=== PATIENT | female | born 1995 | race Caucasian/White ===

== ENCOUNTER → 2017-08-29 | Outpatient (CLI) | payer OTHER | END | disposition home or self-care (01) | LOC: C.PAPS 14:15 | PROVIDERS: ATTEND Obstetrics & Gynecology | DX: Z12.4 Encounter for screening for malignant neoplasm of cervix (principal) ==

== ENCOUNTER → 2017-09-07 | Outpatient (CLI) | payer OTHER ==
--- NOTE | 2017-09-07 15:46 | MAMMOGRAPHY REPORT ---
ULTRASOUND OF RIGHT BREAST: 09/07/2017 CLINICAL HISTORY: 22-year-old woman presents with a palpable lump under the right areola that she has noticed for at least one year. It does not appear to be changing in size but is painful. No skin e rythema or nipple discharge. No family history of breast cancer. COMPARISON: No prior exams were available for comparison. FINDINGS: Targeted ultrasound was performed in the area of palpable lump pointed out by the patient, in the 8:00 periareolar/retroareolar right breast. On palpation, there is a firm 1 cm mass. On ultr asound, there is a multilobulated heterogeneous hypoechoic solid mass. Given the multiple lobulation s it is difficult to obtain accurate measurements, however it measures approximately 3.0 x 1.1 x 2.6 cm. Given the size of this palpable lump, and solid nature, it is indeterminate warranting definitiv e characterization with an ultrasound guided core biopsy. IMPRESSION: ACR BI-RADS CATEGORY 4: SUSPICIOUS - FOLLOW-UP RECOMMENDED 1. Ultrasound guided core biopsy is recommended for an indeterminate solid palpable 3 cm mass in the 8:00 retroareolar right breast. These results and recommendations were discussed with the patient at the time of the exam. She tenta tively scheduled the biopsy prior to leaving our department. Kanwal Ariza M.D. ay/:09/07/2017 13:47:04 Mobile Security Specialist: Nydia CAMPO)(Sina), [facility] letter sent: Abnormal 4/5 BI-RADS Code: ACR BI-RADS Category 4: Suspicious
== END | disposition home or self-care (01) ==
LOC: C.MAMM 13:26
PROVIDERS: ATTEND Obstetrics & Gynecology
DX: N63.10 Unspecified lump in the right breast, unspecified quadrant (principal)

== ENCOUNTER → 2017-09-09 | Outpatient (CLI) | payer OTHER ==
--- NOTE | 2017-09-09 13:11 | Discharge Instructions ---
Discharge Instructions Procedure Procedure Date: Sep 09, 2017. Reason for visit: Right Mass. Discharge Discharge Date: Sep 09, 2017. Discharge Diagnosis: status post breast biopsy Instructions Activity Recommendations: Additional Limitations (see below) Return to School/Work: no limitations Recommended Home Diet: No Limitations Provider Instructions: ACTIVITY RECOMMENDATIONS: * No lifting, pushing, pulling or exercising the affected side for three days. RETURN TO SCHOOL/WORK: * You may return to work/school after the procedure, but do not perform any strenuous activities for 24 to 48 hours. MEDICATIONS: * Tylenol (two 325 mg) every four to six hours if needed for mild pain (if not allergic to Tylenol). DIET: * Resume previous diet. SPECIAL CARE INSTRUCTIONS: * Keep biopsy site dry for 24 hours. May shower after 24 hours, but do not soak (bathe) incision. * May remove Tegaderm (plastic patch) tomorrow AFTER showering. * Leave the steri-strips on for one week. Allow the steri-strips to fall off by themselves. If not off after one week, you may remove them. You may place a Bandaid crosswise over the strips, if desired. * Apply ice 10 minutes on and 10 minutes off as needed. * Wear a bra at bedtime to sleep more comfortably for 2-3 days. * Your referring physician should have the results after approximately 5 to 7 business days. * Call for unusual bleeding, fever, drainage, etc or if you have any questions call during normal business hours or after hours call Dr Gonzalez, . FOLLOW UP VISIT: Follow-up with Referring Physician as scheduled. Uriel Holt Recommendations: Call your doctor if: * Temperature above 101 degrees * Pain not relieved by pain medicine ordered * There is increased drainage or redness from any incision * You have any unanswered questions or concerns. Your Doctors Instructions noted above were prepared by provider Yael Gonzalez. Patient Signature Section: Patient Instructions Signature Page Celia Gamino Patient (or Guardian) Signature/Date: I have read and understand the instructions given to me by my caregivers. Caregiver/RN/Doctor Signature/Date: The above-named patient and/or guardian has received patient instructions on this date. + Original Patient Signature Page (only) stays with chart. Please make copy for patient.
--- NOTE | 2017-09-09 14:11 | MAMMOGRAPHY REPORT ---
ULTRASOUND GUIDED BIOPSY RIGHT BREAST: 09/09/2017 CLINICAL HISTORY: Right 8:00 subareolar breast mass. PATIENT CONSENT: The procedure, risks and benefits were discussed with the patient and informed writt en consent was obtained. A timeout was performed immediately prior to the procedure. PROCEDURE DESCRIPTION: With ultrasound guidance, aseptic technique, and lidocaine as the local anesth etic (1% lidocaine to anesthetize the skin and 1% lidocaine with epinephrine to anesthetize the deepe r tissues), the ill-defined mass of concern in the right 8:00 subareolar breast was sampled 4 times w ith a 14-gauge Achieve biopsy needle. Immediately thereafter, with ultrasound guidance, aseptic tiara hnique, and lidocaine as the local anesthetic, a metallic localizer clip was placed at the biopsy sit e. Direct pressure was applied to the site immediately post procedure and hemostasis was achieved. T he patient tolerated the procedure without complication. She was given wound care instructions. The specimens were sent to pathology for analysis. COMPARISON: Comparison is made to exam dated: 09/07/2017 ultrasound - [facility]. IMPRESSION: ULTRASOUND GUIDED BIOPSY Ultrasound guided core needle biopsy of the right 8:00 breast mass, with clip placement. The patient will receive pathology results from her referring provider. Yael Gonzalez M.D. /:09/09/2017 13:13:47 Woodworking Machine Setter: Cherise Somers, [facility]
== END | disposition home or self-care (01) ==
LOC: C.MAMM 12:39
PROVIDERS: ATTEND Obstetrics & Gynecology
DX: N63.10 Unspecified lump in the right breast, unspecified quadrant (principal)